=== PATIENT | female | born 1970 | race Two or more races ===

== ENCOUNTER 2024-12-13 18:31 | Emergency (ER) | payer BC ==
[~2024-12-13] VITALS: Ht 160 cm; Wt 81.6 kg
[2024-12-13] MEDS ORDERED: ACETAMINOPHEN 500 MG GEL..CAP PO STA (20:52)
[2024-12-13] MEDS ORDERED: KETOROLAC TROMETHAMINE 15 MG VIAL IM STA (20:52)
[2024-12-13] MEDS ORDERED: hydrOXYzine PAMOATE 25 MG CAPSULE PO STA (20:53)
[2024-12-13] MEDS ORDERED: KETOROLAC TROMETHAMINE 30 MG VIAL ONE (21:03)
[2024-12-13] MEDS ORDERED: hydrOXYzine PAMOATE 25 MG CAPSULE PO ONE (21:03)
== END 2024-12-13 22:39 | disposition home or self-care (01) ==
LOC: ER 18:34
DX: R51.9 Headache, unspecified (principal); E78.00 Pure hypercholesterolemia, unspecified; I10 Essential (primary) hypertension